=== PATIENT | female | born 1995 | race Two or more races ===

== ENCOUNTER → 2022-02-15 | Emergency (ER) | payer OTHER ==
[~2022-02-15] MED LIST: FOLIC ACID20 MG PO; PRENATAL TABLE1 EAC1 PO
== END | disposition home or self-care (01) ==
LOC: ER 07:06
DX: O23.593 Infection of other part of genital tract in pregnancy, third trimester (principal); Z3A.37 37 weeks gestation of pregnancy

== ENCOUNTER 2022-03-03 22:07 | Inpatient (IN) | payer OTHER ==
[~2022-03-03] VITALS: Ht 167.6 cm; Wt 101.6 kg
== END 2022-03-06 16:04 | disposition home or self-care (01) | DRG 807 ==
LOC: OBS/DEL 22:07 → OB/GYN 03-04 12:04 → LDR 03-04 12:04 → OBS/DEL 03-04 12:04 → OB/GYN 03-04 19:46
PROVIDERS: ADMIT Specialist; ATTEND Obstetrics & Gynecology
PROC: 10E0XZZ Delivery of Products of Conception, External Approach (ICD-10-PCS; principal; 2022-03-04)
PROC: 0KQM0ZZ Repair Perineum Muscle, Open Approach (ICD-10-PCS; 2022-03-04)
PROC: 0UQMXZZ Repair Vulva, External Approach (ICD-10-PCS; 2022-03-04)
PROC: 4A1HXCZ Monitoring of Products of Conception, Cardiac Rate, External Approach (ICD-10-PCS; 2022-03-04)
PROC: BY4FZZZ Ultrasonography of Third Trimester, Single Fetus (ICD-10-PCS; 2022-03-04)
DX: O70.0 First degree perineal laceration during delivery (principal); Z37.0 Single live birth; O71.82 Other specified trauma to perineum and vulva; Z3A.39 39 weeks gestation of pregnancy; Z20.822 Contact with and (suspected) exposure to COVID-19